=== PATIENT | female | born 1960 | race Caucasian/White ===

== ENCOUNTER 2017-01-04 15:03 | Emergency (ER) | payer SELFPAY ==
[2017-01-04 15:20] VITALS: TEMP 98
--- NOTE | 2017-01-04 17:05 | ED.PDOC ---
History of Present Illness - General Chief Complaint: Upper Extremity Injury Stated Complaint: left arm pain Time Seen by Provider: 01/04/17 16:55 Source: patient, RN notes reviewed, Vital Signs reviewed, family Additional Information: Patient reports about 4 to 7 days of left upper chest wall pain/tenderness with associated numbness and tingling and pain down left arm. Pt is a poor historian , unable to recall medications she has been taking initially, but later disclosed she has been taking pain medicine (?Ultram). Patient histrionic as well with exam - reacted intensely to very light palpation and pressure of the epidermis and dermis in the region of concern and surrounding areas. No gross deformity on exam and no history of inciting trauma. - History of Present Illness Timing/Duration: 1 week Severity: moderate Improving Factors: nothing Worsening Factors: movement Associated Symptoms: denies symptoms Allergies/Adverse Reactions: Allergies Codeine Allergy (Verified 03/21/16 20:30) Home Medications: Ambulatory Orders NK [NK] 01/04/17 Review of Systems - Review of Systems Constitutional: States: no symptoms reported EENTM: States: no symptoms reported Respiratory: States: no symptoms reported Cardiology: States: no symptoms reported Gastrointestinal/Abdominal: States: no symptoms reported Genitourinary: States: no symptoms reported Musculoskeletal: States: see HPI Skin: States: no symptoms reported Neurological: States: see HPI, paresthesia Endocrine: States: no symptoms reported Hematologic/Lymphatic: States: no symptoms reported Past Medical History (General) - Patient Medical History Hx Seizures: No Hx Stroke: No Hx Dementia: No Hx Asthma: Yes Hx of COPD: No Hx Cardiac Disorders: No Hx Congestive Heart Failure: No Hx Pacemaker: No Hx Hypertension: Yes Hx Thyroid Disease: No Hx Diabetes: No Hx Gastroesophageal Reflux: No Hx Renal Disease: No Hx Cancer: No Hx of HIV: No Hx Hepatitis C: No Hx MRSA: No Surgical History: appendectomy, cholecystectomy - Vaccination History Hx Tetanus, Diphtheria Vaccination: No Hx Influenza Vaccination: No Hx Pneumococcal Vaccination: Yes - Social History Hx Tobacco Use: Yes Hx Chewing Tobacco Use: No Hx Alcohol Use: No Hx Substance Use: No Hx Substance Use Treatment: No Hx Depression: No Hx Physical Abuse: No Hx Emotional Abuse: No Hx Suspected Abuse: No - Female History Patient : No Family Medical History - Family History Mother Family History: No Known Living Status: Still Living Physical Exam - Physical Exam General Appearance: Alert, Obese, Restless - but redirectable Eye Exam: bilateral normal Ears, Nose, Throat: hearing grossly normal, normal ENT inspection, normal pharynx Neck: non-tender, full range of motion, supple, normal inspection Respiratory: lungs clear, normal breath sounds, no respiratory distress, no accessory muscle use Cardiovascular/Chest: regular rate, rhythm Gastrointestinal/Abdominal: soft Extremity: other - Initially some limited ROM of left upper extremity, but this improved after Toradol. 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 She responded to painful stimulus and after Toradol she was able to have fairly free ROM. Skin Exam: normal color Comments: Overexaggerated response to mild palpation/pressure of the epidermis and dermis in the left upper chest wall region and surrounding areas. Progress - Progress Progress: 01/04/17 19:26 Patient's symptoms improved after Toradol 60 mg IM x 1. CXR negative for bony and pulmonary abnormalities. D-Dimer negative - doubt PE. - Results/Orders Results/Orders: Laboratory Results - last 24 hr 01/04/17 17:26 D-Dimer, Quantitative < 230 - EKG/XRAY/CT XRAY: chest - No acute abnormalities Departure - Departure Clinical Impression: Myofascial pain on left side Time of Disposition: 18:58 Disposition: Discharge to Home or Self Care Condition: Good Departure Forms: ED Discharge - Pt. Copy, Patient Portal Self Enrollment Home Medications: Ambulatory Orders NK [NK] 01/04/17 Additional Instructions: Ok to take over the counter ibuprofen 200 mg tablets - 2 to 4 tablets three times a day as needed for pain (take with food) for the next 3 to 5 days. Follow -up with primary care provider if condition persists in 3 to 5 days or sooner to ER if condition worsens/unable to function. Gentle range of motion exercises should help with healing as well.
[2017-01-04] MEDS ORDERED: KETOROLAC TROMETHAMINE INJ 60 MG/2 ML VIAL IM ONE (17:06)
--- NOTE | 2017-01-04 17:37 | RAD ---
EXAM: Chest,2 Views CLINICAL INDICATION: 56-year-old female with LEFT anterior chest wall pain and tenderness. TECHNIQUE: Two-view, PA and lateral projections of the chest were obtained. COMPARISON: 08/15/2011. FINDINGS: Unremarkable cardiac and mediastinal silhouette. Heart size is normal. Tortuous thoracic aorta. Lungs are clear without focal opacity, pneumothorax or pleural effusions. The visualized bones are within normal limits. IMPRESSION: No acute cardiopulmonary abnormalities. Electronically signed by: Kirsten Rodriguez MD 01/04/2017 5:36 PM CDT
[2017-01-04 19:13] VITALS: BP 157/92; O2SAT 97
== END 2017-01-04 19:14 | disposition home or self-care (01) ==
LOC: ER 15:03
DX: M79.602 Pain in left arm (principal); I10 Essential (primary) hypertension; J45.909 Unspecified asthma, uncomplicated; Z87.891 Personal history of nicotine dependence; Z88.6 Allergy status to analgesic agent; Z79.899 Other long term (current) drug therapy
CPT/HCPCS: 36415; 71020; 85379; J1885